=== PATIENT | female | born 1975 | race Caucasian/White ===

== ENCOUNTER 2023-11-08 10:31 | Emergency (ER) | payer OTHER, SELFPAY ==
[2023-11-08 10:33] VITALS: BP 123/72; PULSE 74; RESP 18; TEMP 36.9; O2SAT 97
--- NOTE | 2023-11-08 12:00 | ED.HA ---
HPI - Headache General Chief Complaint: Headache Stated Complaint: migraine Time Seen by Provider: 11/08/23 11:47 Source: patient Mode of arrival: ambulatory Limitations: no limitations History of Present Illness HPI Narrative: Patient presents with complaint of a migraine. She was at a concert last night in the heat though she tried to traink a lot of water. No alcohol consumed. She woke up with a headache between 1 and 2. Hx of migraines and POTS. Took her last Zomig tablet between 6 and 7 am prescribed to her by her PCP though realized it was . Experiencing photophobia and phonophobia. No trauma, no anticoagulation, no sick contacts. She also had taken ibuprofen between 3 and 4. Has gotten a headache cocktail before , believes with Toradol and compazine. Related Data Allergies Allergy/AdvReac Type Severity Reaction Status Date / Time diclofenac Allergy Unknown Rash Unverified 11/08/23 11:51 doxycycline Allergy Unknown Rash Unverified 11/08/23 11:51 fentanyl Allergy Unknown Difficulty Unverified 11/08/23 11:51 Breathing meperidine Allergy Unknown Rash Unverified 11/08/23 11:51 Sulfa (Sulfonamide Allergy Unknown Rash Unverified 11/08/23 11:51 Antibiotics) [facility] Past Medical History Medical History Migraine POTS (postural orthostatic tachycardia syndrome) Exam Narrative: GENERAL: Well-appearing, well-nourished, and in no acute distress. HEAD: Normocephalic, atraumatic. EYES: Non injected, non icteric. Pupils round and equally reactive, exam performed while in darkened room. ENT: Nares clear, no rhinorrhea or epistaxis. NECK: Supple. CHEST: Speaking in full sentences. No respiratory distress. HEART: Regular rate and rhythm. . ABDOMEN: Soft, nondistended. EXTREMITIES: Normal range of motion. No edema. Moves all extremities. SKIN: Warm, dry, no rash. NEURO: No focal deficits. Alert and oriented x3. Sensation intact to gross touch throughout in extremities, symmetric. PSYCH: Normal mood and affect. Course Vital Signs Vital signs: Vital Signs Temperature 98.4 F 11/08/23 10:33 Pulse Rate 74 11/08/23 10:33 Respiratory Rate 18 11/08/23 10:33 Blood Pressure 123/72 11/08/23 10:33 Pulse Oximetry 97 11/08/23 10:33 Oxygen Delivery Room Air 11/08/23 10:33 Temperature 98.4 F 11/08/23 10:33 Pulse Rate 74 11/08/23 10:33 Respiratory Rate 18 11/08/23 10:33 Blood Pressure 123/72 11/08/23 10:33 Pulse Oximetry 97 11/08/23 10:33 Oxygen Delivery Room Air 11/08/23 10:33 MDM - Headache MDM Narrative Medical decision making narrative: Patient presents with a headache. History of migraines and POTS. In the emergency department they are afebrile with vital signs within normal limits. After obtaining the patient's history and performing a physical exam, the headache is most likely due to benign etiology. The extensive neurological examination is non-focal, there are no high-risk features on history, vital signs are stable, and the patient is non-toxic appearing. The Ddx for the patient's headache is tension headache, migraine, or other headache of non-emergent etiology. Unlikely SAH: Headache is similar to headaches in the past. No neuro deficits Unlikely subdural/epidural hematoma: no history of trauma, no anticoagulation Unlikely meningitis: afebrile, no meningismus, mild photophobia Unlikely temporal arteritis: pt <60 years old. Unlikely acute angle glaucoma: PERRL Unlikely carbon monoxide poisoning: no other house members with similar symptoms The patient's headache was treated symptomatically with IV fluids, ketorolac, benadryl, compazine. Upon reevaluation, she is feeling much better. She will be discharged with strict return precautions and instructions to follow up with their PCP in the next 1-2 days. Also provided a one time dose of steroid to reduce chance of rebound headache. Provided Rx for alexandro
[2023-11-08] MEDS: SODIUM CHLORIDE 0.9% IV 1,000 ML 999 ML IV CONT (12:29)
[2023-11-08] MEDS: KETOROLAC 15 MG/ML VIAL (*BKC) IV PUSH (12:30)
[2023-11-08] MEDS: PROCHLORPERAZINE EDISYLATE 10 MG/2 ML VIAL IV PUSH (12:30)
[2023-11-08] MEDS: diphenhydrAMINE HCl INJ 50 MG/ML VIAL 25 MG IV PUSH (12:30)
[2023-11-08] MEDS: predniSONE 20 MG TABLET PO (14:08)
== END 2023-11-08 14:13 | disposition home or self-care (01) ==
PROVIDERS: Emergency Provider Student in an Organized Health Care Education/Training Program; PCP Family Medicine
DX: R51.9 Headache, unspecified (principal)
CPT/HCPCS: 96361; 96374; 96375; 99284; J0780; J1200; J1885; J7030; J7512

== ENCOUNTER 2024-09-21 18:03 | Emergency (ER) | payer OTHER, SELFPAY ==
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
--- OUTSIDE RECORDS SUMMARY | 2024-09-21 18:05 | XMS_ITS | Clinical Summary ---
Author Organization [facility] Administrative Offices Address [address] [place] [address] Care Team Providers Care Cytology Laboratory Manager Name Role Phone Marlon Pollock MD Primary Care Provider [phone] Allergies Active Allergy Reactions Criticality Noted Date Comments Covid-19 Vaccine, Mrna, [id number], Lnp-S (Dash) Angioedema High 06/25/2021 Diclofenac Rash,Fever Low 10/25/2009 Dicyclomine Rash Low 05/04/2017 Doxycycline Hives,Itching High 10/25/2009 Fentanyl Bradycardia,Hypotens ion High 10/25/2009 Low BP,low o2 sat,loss orientation Meperidine (Pf) Rash,Itching Medium 10/25/2009 Moxifloxacin Nausea and Vomiting Low Sulfa (Sulfonamide Antibiotics) Rash,Itching,Fever High 10/25/2009 Medications hydrocortisone (Proctozone-HC) 2.5 % cream with perineal applicator Insert by rectum 2 times daily. 28 Gram 4 Active albuterol sulfate HFA 90 mcg/actuation aerosol inhaler Take 2 Puffs by inhalation. 4 02/16/20 25 Active methylPREDNISol one (MEDROL DOSPACK) 4 mg Tablets, Dose Pack follow package directions 4 Active rosuvastatin (CRESTOR) 10 mg tablet TAKE 1 TABLET(10 MG) BY MOUTH DAILY 90 Tablet 3 4 Active valACYclovir (Valtrex) 500 mg tablet Take 1 Tablet (500 mg) by mouth 2 times daily. 180 Tablet 3 4 Active propranoloL (INDERAL) 10 mg tablet Take 1 Tablet (10 mg) by mouth 2 times daily. 60 Tablet 5 5 Active omeprazole (PriLOSEC) 40 mg Capsule, Delayed Release(E.C.) Take 1 Capsule (40 mg) by mouth daily. 90 Capsule 1 5 Active Active Problems Patient Care Coordination No te Formatting of this note migh t be different from the original. Dr. 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 06/17/2019 HSV infection 07/15/2018 Dense breast tissue on mammogram 09/02/2017 Liver mass 08/08/2017 TMJ (temporomandibular joint syndrome) 6 LSO 04/19: gen diet; Autonomic neuropathy (POTS) 04/19/2015 POTS (postural orthostatic tachycardia syndrome) 06/15/2013 Overview (06/15/2013): Renee 2013 Syncope and collapse 04/28/2013 Family history of colon cancer 03/17/2012 Cervical high risk human pap illomavirus (HPV) DNA test positive Overview (03/17/2012): 2009 persistent positive 07/2010 colposcopic benign cervical biopsies Resolved Problems Problem Noted Date Diagnosed Date Resolved Date S/P LEEP 03/17/2012 04/19/2015 Overview (03/17/2012): 2001 Well woman exam with routine gynecological exam 03/17/2012 03/31/2014 OCP (oral contraceptive pills) initiation 03/17/2012 03/30/2013 Labor B pos GBS neg 11/12/2009 03/17/20 12 Encounters Date Type Department Care Team Description 09/20/2024 External Device Data STL ABSTRACTION Provider, Abstract 09/12/2024 Telephone [facility] Pulmonology [address] [place] [address] Roxi Avendaño MD Follow Up 09/09/2024 Results Follow-Up [facility] Pulmonology [address] [place] [address] Roxi Avendaño MD HOME SLEEP STUDY UNATTENDED 08/19/2024 2:53 PM CDT - 08/19/2024 11:59 PM CDT Hospital Encounter [facility] Home Sleep Study [facility] [address] [place] [address] Roxi Avendaño MD Discharge Disposition: Home or Self Care 08/10/2024 Abstract [facility] Heart and Vascular At [address] [place] [address] Olivia Duran MD 08/08/2024 Refill [facility] Gastroenterology [address] [place] [address] Maxim Beard MD 08/05/2024 9:15 AM CDT Office Visit [facility] Pulmonology [facility] [address] [place] [address] Roxi Avendaño MD Observed sleep apnea (Primary Dx) 08/01/2024 Refill [facility] Heart and Vascular At [address] [place] [address] Olivia Duran MD 07/28/2024 3:15 PM CDT Office Visit [facility] Heart and Vascular At [address] [place] [address] Olivia Duran MD POTS (postural orthostatic tachycardia syndrome) (Primary Dx); Pure hypercholesterolemia 07/27/2024 External Device Data STL ABSTRACTION Provider, Abstract 07/26/2024 External Device Data STL ABSTRACTION Provider, Abstract 07/23/2024 External Device Data STL ABSTRACTION Provider, Abstract 07/22/2024 External Device Data STL ABSTRACTION Provider, Abstract 07/01/2024 Telephone [facility] Heart and Vascular At [address] [place] [address] Olivia Duran MD Information; Irregular Heart Beat from Last 3 Months Immunizations Immunization Administration Dates Next Due (PFIZER)(12 YR UP) COVID-19 VACCINE - EMERGENCY USE AUTHORIZATION, MRNA, [id number](PF) 30 MCG/0.3 ML IM SUSP 05/31/2021 Influenza Seasonal Unspecified Formulation IM ,03/22/2009 Influenza Vaccine Nasal 02/22/2015 Family History Medical History Relation Name Comments Healthy Brother 1 Healthy Brother 2 Healthy Brother 3 Healthy Daughter 1 Healthy Daughter 2 Diabetes Father Liver Disease Father Unknown Father COPD Maternal Grandfather Zina d Diabetes Maternal Grandfather Zina Heart Disease Maternal Grandfather Zina Hypertension Maternal Grandfather Zina Lung Cancer Maternal Grandfather Zina Cancer Maternal Grandmother Jordyn possibl e ovarian or cervical?? Heart Disease Maternal Grandmother Jordyn Lung Cancer Maternal Grandmother Jordyn Ovarian Cancer Maternal Grandmother Jordyn Uterine Cancer Maternal Grandmother Jordyn Basal cell carcinoma Mother Anny Colon Polyps Mother Anny large and preca ncerous Other Mother Anny mitral valve pr olaspe Stomach Cancer Paternal Grandfather Micheal Unknown Paternal Grandmother Breast Cancer Neg Hx Colon Cancer Neg Hx Relation Name Status Comments Brother 1 Alive Brother 2 Alive Brother 3 Alive Daughter 1 Alive Daughter 2 Alive Father (Age 59) Cirrhosis Hep C and heart issues, DM Maternal Aunt Maternal Grandfather Zina Maternal Grandmother Jordyn Mother Anny Alive Paternal Grandfather Micheal Paternal Grandmother Social History Tobacco Use Types Packs/Day Years Used Date Smoking Tobacco: Never Smokeless Tobacco: Never Tobacco Cessation:Counseling Given: Not Answered Alcohol Use Standard Drinks/Week Comments Yes 0 (1 standard drink = 0.6 oz pur e alcohol) Occasional Feeling Safe Answer Date Recorded Within the last year, have y ou been afraid of your partner or ex-partner? No 02/25/2021 Within the last year, have y ou been humiliated or emotionally abused in other ways by your partner or ex-partner? No Within the last year, have y ou been kicked, hit, slapped, or otherwise physically hurt by your partner or ex-partner? No 02/25/2021 Within the last year, have y ou been raped or forced to have any kind of sexual activity by your partner or ex-partner? No 02/25/2021 Social Connections Answer Date Recorded Frequency of Communication with Friends and Fami ly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 02/25/2021 Frequency of Social Gatherings with Friends and Family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 02/25/2021 Attends Congregation Services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 02/25 Active Member of Clubs or Organizations Not on f ile 02/25/2021 Attends Club or Organization Meetings Not on sagar e 02/25/2021 Are you , , di vorced, , never , or living with a partner? 02/25/2021 Feeling Safe Answer Date Recorded Are you in a relationship wi th someone who hurts you emotionally and/or physically? 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 Last Filed Vital Signs Vital Sign Reading Time Taken Comments Blood Pressure 118/74 08/05/2024 9:08 AM CDT Pulse 73 08/05/2024 9:08 AM CDT Temperature 36.1 C (97 F) 01/22/2024 2:14 PM CDT Respiratory Rate 6 01/22/2024 2:34 PM CDT Oxygen Saturation 97% 08/05/2024 9:08 AM CDT Inhaled Oxygen Concentration - - Weight 65.3 kg (144 lb) 08/05/2024 9:08 AM CDT Height 154.9 cm (5' 1 ) 08/05/2024 9:08 AM CDT Body Mass Index 27.21 08/05/2024 9:08 AM CDT Plan of Treatment Upcoming Encounters Date Type Department Care Team (Late st Contact Info) Description 01/03/2025 8:00 PM CDT Appointment [facility] Support Services Adult Sleep Medicine [address] [place] [address] Roxi Avendaño MD [address] [place] [address] 02/02/2025 3:30 PM CDT Office Visit [facility] Heart and Vascular At [facility] [address] [place] [address] Olivia Duran MD [address] [place], [place] [id number] 03/08/2025 3:15 PM CDT Office Visit [facility] TEACHING AIDE - [id number] [address] Kathy Robledo DO [address] [place] [address] Health Maintenance Due Date Last Done Comments Pre-Diabetes and Diabetes Screening 1975 HEPATITIS B VACCINES (1 of 3 - 19+ 3-dose series) 1996 FIT-DNA Q 3 years 2022 FIT/FOBT Q 1 year 2022 Flex Sig/CT Colonography Q 5 years 2022 INFLUENZA VACCINE (#1) 2023 5, 02/19/2015, 02/15/2014, Additional history exists COVID-19 Vaccine (2023-2 5 season) 2024 05/31/2021, 05/07/2020 BREAST CANCER SCREENING 03/30/2025 03/30/20 24, 03/10/2023, 03/10/2023, Additional history exists COLORECTAL SCREENING 10/17/2026 10/17/2021, 10/17/2021, 10/17/2021, Additional history exists Colorectal Cancer Screening 10/17/2026 PAP SMEAR 03/07/2027 03/07/2024, 02/15, 02/27/2022, Additional history exists CERVICAL CANCER SCREENING 03/07/2029 HPV/Cotest (21-29) 03/07/2029 03/07/2024, 1 , 02/27/2022, Additional history exists HPV/Cotest (30-65) 03/07/2029 03/07/2024, 1 , 02/27/2022, Additional history exists DTAP/TDAP/TD VACCINES (2 - T d or Tdap) 04/08/2032 04/08/2022 Procedures Procedure Name Priority Date/Time Associated Diagnosis Comments HOME SLEEP STUDY UNATTENDED Routine 09/08/2024 7:12 AM CDT Observed sleep apnea MAMMO 3D MADELINE SCREEN BILAT W OR WO CAD Routine 03/30/2024 4:40 PM CHILDBIRTH AND INFANT CARE TEACHER Visit for screening mammogram CERV/VAG CYTO AGE BASED SCREEN PAP Routine 03/07/2024 3:27 PM CDT Well woman exam with routine gynecological exam Screening for HPV (human papillomavirus) Screening for cervical cancer COLONOSCOPY REPORT 10/17/2021 12 :25 PM CDT from Last 3 Months or Most Recently Relevant to Health Maintenance Results * HOME SLEEP STUDY UNATTENDED (09/08/2024 7:12 AM CDT) Narrative Procedure Note Aspen Ball MD - 09/08/2024 7:12 AM CDT [place], [place] [address] Sleep Study CSN: [id number] DATE OF SERVICE: 08/21/2024 HISTORY The patient is a 48-year-old woman, who is 61 inches tall and weighs 144pounds. POLYSOMNOGRAPHY This is a home sleep study performed on 08/21/2024. The patient'smonitoring time was 419.5 minutes. The patient's LOC was 1.7. Theaverage saturation was 95% and the lowest saturation was 91%. Thepercentage of snoring was 28.1%. IMPRESSION This patient's home sleep study showed LOC of 1.7, indicating nosignificant sleep apnea. Some mild snoring was noted during 28.1% of themonitoring time. LOC is a surrogate for AHI. KPL:MEDQ DID:[id number] Dictated by: Claudia Ball MD CC: Dr. Avendaño Roxi Avendaño MD SLEEP CENTER ORDERABLES Final Result * MAMMO 3D MADELINE SCREEN BILAT W OR WO CAD (03/30/2024 4:40 PM CHILDBIRTH AND INFANT CARE TEACHER) Anatomical Region Laterality Modality Breast Bilateral Mammography 03/30/2024 4:41 PM CHILDBIRTH AND INFANT CARE TEACHER Impressions 03/30/2024 4:51 PM CHILDBIRTH AND INFANT CARE TEACHER IMPRESSION: No mammographic evidence of malignancy in the bilateral breasts. Routine screening mammography is recommended in one year. OVERALL FINAL ASSESSMENT: BI-RADS CATEGORY 1 - Negative DICTATION LOCATION: [facility] 03/30/2024 4:51 PM CHILDBIRTH AND INFANT CARE TEACHER EXAMINATION: BILATERAL SCREENING DIGITAL MAMMOGRAPHY WITH TOMOSYNTHESIS AND CAD DATE: 03/30/2024 4:40 PM HISTORY: Routine screening mammography. COMPARISON: Mammography with dates ranging from 03/10/2023 to 09/10/2018. TECHNIQUE: A bilateral screening mammogram was performed. Low-dose full-field digital breast tomosynthesis examination was performed with 2D and 3D acquisitions. Examination is read in conjunction with computer aided detection. BREAST COMPOSITION: The breasts are heterogeneously dense, which may obscure small masses. FINDINGS: There are no suspicious masses, suspicious calcifications, or other suspicious findings in either breast. There has been no suspicious interval change. Computer aided detection was used in the interpretation of this examination. Procedure Note Roger Hernandez MD - 03/30/2024 EXAMINATION: BILATERAL SCREENING DIGITAL MAMMOGRAPHY WITH TOMOSYNTHESIS AND CAD DATE: 03/30/2024 4:40 PM HISTORY: Routine screening mammography. COMPARISON: Mammography with dates ranging from 03/10/2023 to 09/10/2018. TECHNIQUE: A bilateral screening mammogram was performed. Low-dose full-field digital breast tomosynthesis examination was performed with 2D and 3D acquisitions. Examination is read in conjunction with computer aided detection. BREAST COMPOSITION: The breasts are heterogeneously dense, which may obscure small masses. FINDINGS: There are no suspicious masses, suspicious calcifications, or other suspicious findings in either breast. There has been no suspicious interval change. Computer aided detection was used in the interpretation of this examination. IMPRESSION: No mammographic evidence of malignancy in the bilateral breasts. Routine screening mammography is recommended in one year. OVERALL FINAL ASSESSMENT: BI-RADS CATEGORY 1 - Negative DICTATION LOCATION: [facility] Kathy Moses Kieshaapolinar DO MAMMO ORDERABLES Final Result * (ABNORMAL) CERV/VAG CYTO AGE BASED SCREEN PAP (03/07/2024 3:27 PM CDT) COMMENT (PAP): [facility] [place] Comment: This order for age-based cervical cancer and STI screening follows ACOG guidelines(PB 168, 140, PBH670). See individual assays for performing site location. CLINICAL INFORMATION [facility] [place] Comment:SCREENING LAST MENSTRUAL PERIOD [facility] [place] Comment:NONE GIVEN PREV PAP: [facility] [place] Comment:03/05/2023 NIL PREV BX: [facility] [place] Comment:NONE GIVEN SOURCE [facility] [place] Comment:Endocervix ADEQUACY: [facility] [place] Comment: Satisfactory for evaluation. Endocervical/transformation zone component present. Age and/or menstrual status not provided GENERAL CATEGORIZATION: (A) [facility] [place] Comment:Cytology Results: Ep ithelial Cell Abnormality PAP INTERP (A) [facility] [place] Comment:Low Grade Squamous I ntraepithelial Lesion (LSIL) COMMENT (PAP TEST) [facility] [place] Comment: This Pap test has been evaluated with computer assisted technology. Suggest clinical correlation and follow-up as clinically appropriate PROJECT SCHEDULER: [facility] [place] Comment: MVB, CT(ASCP) CT Screening Location: [place] [address] [place] [address] PATHOLOGIST Sandy [facility] Comment: Irvin Gordon M.D., Board Certified in Anatomic Pathology and Cytopathology. (electronic signature) EXPLANATORY NOTE [facility] [employer] [facility] Comment: EXPLANATORY NOTE: The Pap is a screening test for cervical cancer. It is not a diagnostic test and is subject to false negative and false positive results. It is most reliable when a satisfactory sample, regularly obtained, is submitted with relevant clinical findings and history, and when the Pap result is evaluated along with historic and current clinical information. HPV E6/E7 Not Detected Not Detected [facility] [place] Comment: Methodology: Strawhat Inspector And Packer-Mediated Amplification This assay detects E6/E7 viral messenger RNA (mRNA) from 14 high-risk HPV types (16,18,31,33,35,39,45,51,52,56,58,59,66,68). Cervical sources are required for HPV testing. If a vaginal source from a patient who has had a total hysterectomy with removal of cervix was submitted, please contact the testing laboratory for alternative testing options. For additional information, please refer to http://education.[employer]/faq/PSK544u2 (This link if provided for information/ educational purposes only.) Test [facility]formed at[facility] [address] [place] [address] Sergio RIVAS Genital SWAB OF ENDOCERVIX / Unknown 03/07/2024 3:27 PM CDT 03/08/2024 4:39 AM CDT Kathy Robledo DO PATHOLOGY/CYTOLOGY ORDERABLES F inal Result [facility] [phone] [facility] [id number] [place] [address] * COLONOSCOPY REPORT (10/17/2021 12:25 PM CDT) Narrative Procedure Note Maxim Beard MD - 10/17/2021 12:25 PM CDT [facility] Endoscopy Patient Name: Annel Granda Procedure Date: 10/17/2021 Date of : 1975 Age: 46 Attending MD: Maxim Beard MD Procedure: Colonoscopy Indications: Hematochezia, Family history of colonic polyps in a first-degree relative (mother with multiple polyps including a larger polyp at 60), Change in bowel habits. Last colonoscopy 2018. Small polyp proved to be lymphoid aggregate. Providers: Maxim Beard MD Referring MD: Marlon Pollock MD Requesting Provider: Olivia Duran MD Medicines: Monitored Anesthesia Care Procedure: Informed consent was obtained for the procedure, including moderate sedation after risks were discussed. Based on the pre-procedure assessment, including review of the patient's medical history, medications, allergies, and review of systems, the patient was deemed to be an appropriate candidate for sedation. A timeout was performed. Continuous ECG monitoring, pulse oximetry, blood pressure monitoring, and direct observation were performed. The Colonoscope was introduced through the anus and advanced to the terminal ileum. The quality of the bowel preparation was excellent. Estimated Blood Loss: Estimated blood loss: none. Findings: External and internal hemorrhoids were found during retroflexion and during perianal exam. The hemorrhoids were mild. The perianal examination was otherwise normal. No fissure currently. The exam was otherwise normal throughout the examined colon. The terminal ileum appeared normal. Complications: No immediate complications. Impression: - External and internal hemorrhoids. - The examined portion of the ileum was normal. - No specimens collected. Recommendation: - Repeat colonoscopy in 5 years for surveillance due to mother's history. Maxim Beard MD 10/17/2021 12:24:52 PM This report has been signed electronically. Number of Addenda: 0 Procedure Date: 10/17/2021 11:44:[address] [place] [address] Maxim Beard MD GI PROCEDURE ORDERABLES Final Result from Last 3 Months or Most Recently Relevant to Health Maintenance Insurance [facility] [employer] [id number] Advance Directives For more information, please contact: [phone] * Full Code (Latest Code Status on File) Date Activated Date Inactivated Comments 01/22/2024 12:47 PM 01/22/2024 4:50 PM * Full Code Date Activated Date Inactivated Comments 10/04/2022 1:20 AM 10/06/2022 6:03 PM * Full Code Date Activated Date Inactivated Comments 10/17/2021 11:27 AM 10/17/2021 3:02 PM * Full Code Date Activated Date Inactivated Comments 09/11/2017 8:48 AM 09/11/2017 1:47 PM * Full Code Date Activated Date Inactivated Comments 06/17/2017 7:16 AM 06/17/2017 11:10 AM Care Teams Cytology Laboratory Manager Relationship Specialty Start Date End Date Marlon Pollock MD PCP - General 06/06/09
--- OUTSIDE RECORDS SUMMARY | 2024-09-21 18:05 | XMS_ITS | Encounter Summary ---
Author Organization [facility] Address [address] [place] [address] Care Team Providers Care Acls Specialist Name Role Phone Marlon oPllock MD Primary Care Provider [phone] Encounter Details Date Type Department Care Team (Latest Contact Info) Description 09/09/2024 Results Follow-Up [facility] Pulmonology 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 documented as of this encounter Miscellaneous Notes * Result Encounter Note - Roxi Avenadño MD - 09/09/2024 12:55 PM CDT [facility] this encounter Plan of Treatment Upcoming Encounters Date Type Department Care Team (Late st Contact Info) Description 01/03/2025 8:00 PM CDT Appointment [facility] Support Services Adult Sleep Medicine [address] [place] [address] Roxi Avendaño MD [address] [place] [address] 02/02/2025 3:30 PM CDT Office Visit [facility] [address] [place] [address] Olivia Duran MD [address] [place], [place] [id number] 03/08/2025 3:15 PM CDT Office Visit [facility] HOB MILL OPERATOR [address] [place] [address] Kathy Robledo DO [address] [place] [address] documented as of this encounter Visit Diagnoses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documented in this encounter Care Teams Acls Specialist Relationship Specialty Start Date End Date Marlon Pollock MD PCP - General 06/06/09 documented as of this encounter
--- OUTSIDE RECORDS SUMMARY | 2024-09-21 18:05 | XMS_ITS | Clinical Summary ---
Author Organization [facility] Address [address] [place] [address] Care Team Providers Care Adjunct Professor Of English Name Role Phone Marlon Pollock MD Primary Care Provider [phone] Allergies Active Allergy Reactions Criticality Noted Date Comments Covid-19 Vaccine, Mrna, [id number], Lnp-S (Pfizer) Angioedema High 06/25/2021 Diclofenac Dicyclomine Rash Medium [...] for 7 days 3.5 g 5 09/16/19 25 Active Problems Problem Noted Date Diagnosed Date [...] month. Assessment & Plan (04/28/2024 8:52 AM DATA ENTRY REPRESENTATIVE): Referral to sleep medicine at [facility] for strongly suspicious findings of SHAR and will refer as above. No parasomnia, no sleep talking. BMI 26.0-26.9,adult 04/28/2024 Assessment & Plan (08/09/2024 8:18 AM CDT): NOt an active clincial issues. Assessment & Plan (04/28/2024 8:52 AM DATA ENTRY REPRESENTATIVE): Not an active clinical issue. Post-COVID chronic [...] CDT): COntinues f/u with Dr. Hernandez. Chris montañowth prn propranolol for tachycardia and will follow response. Continues to be aggressive with hydration. Assessment & Plan (04/28/2024 8:51 AM DATA ENTRY REPRESENTATIVE): COntinue f/u with cardiology. 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 06/17/2019 08/04/2023 Encounters Date Type Department Care Team Description 09/08/2024 Orders Only [facility] [address] [phone] Marlon Pollock MD 08/09/2024 8:30 AM CDT - 08/09/2024 11:59 PM CDT Hospital Encounter [place] [id number] POTS (postural orthostatic tachycardia syndrome) Discharge Disposition: Discharge to home or self care 08/09/2024 8:30 AM CDT Lab [facility] Outpatient Lab at [address] [phone] POTS (postural orthostatic tachycardia syndrome) (Primary Dx) 08/09/2024 8:00 AM CDT Office Visit [facility] Primary Care at [address] [phone] Marlon Pollock MD POTS (postural orthostatic tachycardia syndrome) (Primary Dx); Mixed hyperlipidemia; Gastroesophageal reflux disease, unspecified whether esophagitis present; Sleep disturbance; Annual physical exam; BMI 26.0-26.9,adult 08/02/2024 5:30 PM CDT Office Visit [facility] Convenient Care at [address] [phone] Bruno Flores NP Eyelid dermatitis, allergic/contact (Primary Dx) 07/01/2024 Telephone [facility] [address] [phone] Marlon Pollock MD 06/28/2024 10:30 AM DATA ENTRY REPRESENTATIVE Office Visit [facility] Primary Care at [address] [phone] Marlon Pollock MD Acute cough (Primary Dx); Fever, unspecified fever cause; Influenza A 06/28/2024 Telephone [facility]ly [facility] [address] (Third Floor) [place] [phone] Diandra Matson, RN [place] Employee Screening from Last 3 Months Immunizations Immunization Administration Dates Next Due Influenza [...] Vaccination (12+ Yrs) PURPLE 05/31/2021,05/07/2020 Tdap 04/08/2022 Surgical History Surgery Date Site/Laterality Comments SALPINGOOPHORECTOMY 04/17/2015 - 05/17/2015 left ovary and tube removed Medical History Medical History Date Comments Hx Other Medical Autonomic disor dom; Comments: DRS 05/03/2014 - Migraines POTS (postural orthostatic t achycardia syndrome) Family History Medical History Relation Name Comments Coronary artery disease Father Josie nary artery disease; Colon polyps Mother Relation Name Status Comments Father (Age 58) Mother Alive Social History Tobacco Use Types Packs/Day Years Used Date Smoking Tobacco: Never Smokeless Tobacco: Never Tobacco Cessation:Counseling Given: Not Answered Alcohol Use Standard Drinks/Week Comments Yes 0 (1 standard drink = 0.6 oz pur e alcohol) [facility] [employer] Answer Date Recorded In the past 12 months has [employer], gas, oil, or water [employer] threatened to shut off services in your [...] week 04/18/2024 How often do you attend [facility] or scientologist services? More than 4 times per year 04/18/2024 Do you belong to any clubs o r organizations such as buddhism groups, unions, fraternal or athletic groups, or [...] staff should administer the PHQ-9) 0 08/09/2024 [facility] - Occupational Stress Questionnaire Answer Date Recorded [...] any time in the past 12 m [facility], were you homeless or living in a nursing home (including now)? No 04/18/2024 Comments Unknown Sex and Gender Information Value Date Recorded Sex Assigned at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 Legal Sex Female 7:01 PM DATA ENTRY REPRESENTATIVE Gender Identity Female 12/07/2020 8:51 AM CDT Sexual Orientation Straight 12/07/2020 8: 51 AM CDT Obstetrics History Last Filed Vital Signs Vital Sign Reading [...] 08/09/2024 8:00 AM CDT Plan of Treatment Health Maintenance Due Date Last Done Comments Cervical Cancer Screening 1977 Hepatitis C Screening 1977 Hepatitis B Screening 09/02/1995 Covid-19 Vaccine ( season) 2024 05/31/2021, 05/31/2021, 05/28/2020, Additional history exists Breast Cancer Screening-Mammogram 03/30/2025 03/30/2024, 03/30/2024, 03/10/2023, Additional history exists Depression Screening 08/09/2025 08/09/2024, 06/28/2024, 04/18/2024, Additional history exists Regular Well Visit/Exam 18-64 08/09/2025 08/09/2024, 08/04/2023, 07/22/2022, Additional history exists Colon Cancer Screening-Colonoscopy 10/17/2026 10/17/2021, 09/11/2017, 09/11/2017, Additional history exists DTaP/Tdap/Td Vaccine (2 - Td or Tdap) 04/08/2032 04/08/2022 Influenza Vaccine Discontinued 02/19/2015, , 02/15/2014, Additional history exists Pneumococcal vaccine <65 Aged Out No longer eligible based on patient's age to complete this topic Procedures Procedure Name Priority Date/Time Associated Diagnosis Comments HEPATIC FUNCTION PANEL Routine 08/09/2024 8:30 AM CDT POTS (postural orthostatic tachycardia syndrome) POC INFLUENZA A/B, COVID-19 ANTIGEN Routine 06/28/2024 10:42 AM DATA ENTRY REPRESENTATIVE Acute cough SCREENING MAMMOGRAM BILATERAL W SILAS [...] CDT FAX RESULTS TO DR OLIVIA HERNANDEZ [phone] Olivia Hernandez MD LAB BLOOD ORDERABLES Final Res ult TIANNA PATRICK [address] [place] [address] * (ABNORMAL) POC Influenza A/B, COVID-19 antigen (06/28/2024 10:42 AM DATA ENTRY REPRESENTATIVE) Influenza A Ag, POC Positive(A) Negative [facility] Influenza B Ag, POC Negative Negative [facility] COVID-19 Ag POC Presumptive Negative Presumptive Negative, Invalid [facility] Nasal 06/28/2024 10:4 2 AM DATA ENTRY REPRESENTATIVE Marlon Pollock MD POINT OF CARE TEST ORDERA BLES Final Result Performing Organization Address City/[facility]/ZIP Co de Phone Number [facility] PCP [facility] [address] [facility] [address] * Screening Mammogram Bilateral W Silas (02/06/2022) Anatomical Region Laterality Modality Breast Bilateral Mammography Historical Provider IMG MAMMO PROCEDURES Sammi l Result * Colonoscopy (10/17/2021) Anatomical Region Laterality Modality Other Historical Provider ENDOSCOPY PROCEDURES Sammi l Result from Last 3 Months or Most Recently Relevant to Health Maintenance Insurance [facility]/PPO Address: [address] [address] [place] [address] [place] [address] [facility] H[facility]/PPO Address: [address] [place] [address] [place] [address] [facility] H[facility]/PPO Address: [address] [address] [place] [address] [place] [address] [facility]/PPO Address: [facility] [id number] [place] [address] Care Teams Adjunct Professor Of English Relationship Specialty Start Date End Date Marlon Pollock MD [address] [place] [address] PCP - General 01/03/11
--- OUTSIDE RECORDS SUMMARY | 2024-09-21 18:05 | XMS_ITS | Encounter Summary ---
Author Organization [facility] Address 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 [address] [facility] [address] [place] [address] Olivia Duran MD [address] [facility] [place], [place] [phone] 03/08/2025 3:15 PM CDT Office Visit [facility] VOLUNTEER RECRUITMENT COORDINATOR - [id number] [address] Kathy Robledo DO [address] [facility] [address] [place] [address] documented as of this encounter Visit Diagnoses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documented in this encounter Care Teams Sheet Roller Operator Relationship Specialty Start Date End Date Marlon Pollock MD PCP - General 06/06/09 documented as of this encounter
--- OUTSIDE RECORDS SUMMARY | 2024-09-21 18:06 | XMS_ITS | Clinical Summary ---
Author Organization [facility] Address [address] [address] Phone Care Team Providers Care Property Maintenance Technician Name Role Phone Marlon Pollock MD Primary Care Provider [phone] Allergies Active Allergy Reactions Criticality Noted Date Comments Meperidine Rash 06/22/2015 Dicyclomine Rash 06/22/2015 Doxycycline Anaphylaxis,Rash 06/22/2015 Fentanyl Rash 06/22/2015 Sulfa Antibiotics Rash 06/22/2015 Medications No known medications Active Problems Problem Noted Date Diagnosed Date TMJ (temporomandibular joint syndrome) 6 Referred otalgia 06/22/2015 Malocclusion of teeth 06/22/2015 Immunizations Immunization Administration Dates Next Due Influenza Vaccine Nasal 02/19/2015 Social History Tobacco Use Types Packs/Day Years Used Date Smoking Tobacco: Never Alcohol Use Standard Drinks/Week Comments No 0 (1 standard drink = 0.6 oz pur e alcohol) Comments No Sex and Gender Information Value Date Recorded Sex Assigned at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 Legal Sex Female 8:03 AM ADVERTISING JOB TITLES Gender Identity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 Sexual Orientation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 Last Filed Vital Signs Vital Sign Reading Time Taken Comments Blood Pressure 118/64 06/22/2015 11:15 AM ADVERTISING JOB TITLES Pulse 68 06/22/2015 11:15 AM ADVERTISING JOB TITLES Temperature - - Respiratory Rate - - Oxygen Saturation - - Inhaled Oxygen Concentration - - Weight 56.7 kg (125 lb) 06/22/2015 11:15 AM ADVERTISING JOB TITLES Height 154.9 cm (5' 1 ) 06/22/2015 11:15 AM ADVERTISING JOB TITLES Body Mass Index 23.62 06/22/2015 11:15 AM ADVERTISING JOB TITLES Plan of Treatment Health Maintenance Due Date Last Done Comments Hepatitis C Virus (HCV) Screening 1977 TdaP Immunization 1977 Hepatitis B Immunization (1 of 3 - 19+ 3-dose series) 1996 Pap Smear 1998 Cervical Cancer Screening (CCS) 09/02/2007 HPV/Cotest 09/02/2007 Discussion re Starting/Frequ ency of Mammograms 2017 Colonoscopy 2022 Colorectal Cancer Screening 2022 Influenza Immunization (#1) 2024 02/19/2015 SARS-COV-2 Immunization ( - season) 2024 Respiratory Syncytial Virus (RSV) Immunization (Adult) (1 - 1-dose 75+ series) 2052 Meningococcal Immunization (ACWY) Aged Out No longer eligible based on patient's age to complete this topic Pneumococcal Immunization Combined Aged Out No longer eligible based on patient's age to complete this topic Rotavirus Immunization Aged Out No lo nger eligible based on patient's age to complete this topic Care Teams Property Maintenance Technician Relationship Specialty Start Date End Date Marlon Pollock MD [address] [place] [address] PCP - General Internal Medicine 06/22/15
--- OUTSIDE RECORDS SUMMARY | 2024-09-21 18:06 | XMS_ITS | Clinical Summary ---
Author Organization [facility] Address [address] [place] [address] Care Team Providers Care Bulk Materials Handling Plant Operator Name Role Phone Miranda Dent MD Primary Care Provider Cruz carvajal Source Comments [facility],non-owned Affiliates and Associated Physician Practices is amultiple site organization consisting of ambulatory clinics and hospital sitesin [place], [place], [place] and [place]. This disclosure is being madepursuant to the Care Everywhere program and may not contain all information available regarding this patient. 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 Gender Identity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 Sexual Orientation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 Plan of Treatment Health Maintenance Due Date Last Done Comments COLOGUARD (AGES 45-75) - COL ON CA SCREENING 1977 COLON MONITORING 1977 COLONOSCOPY - COLON CA SCREENING 1977 CT COLONOGRAPHY - COLON CA SCREENING 1977 Colorectal Cancer Screening 1977 FIT - COLON CA SCREENING 1977 FLEX SIG - COLON CA SCREENING 1977 LIPID TESTING 1977 MAMMOGRAM 1977 PAP SMEAR 1977 HIV SCREENING 1992 HEPATITIS C SCREENING 08/28/1995 DTAP/TDAP/TD VACCINES (1 - Tdap) 1996 HEPATITIS B VACCINE (1 of 3 - 19+ 3-dose series) 1996 COVID-19 VACCINE (2023-2 5 season) 2024 DEPRESSION SCREENING 05/18/2024 INFLUENZA VACCINE (Season Ended) 2025 ZOSTER VACCINE (1 of 2) 09/02/2027 HIB VACCINE Aged Out No longer eligi ble based on patient's age to complete this topic HPV VACCINE Aged Out No longer eligi ble based on patient's age to complete this topic MENINGOCOCCAL (Group B) VACC INE SHARED DECISION-MAKING Aged Out No longer eligibl e based on patient's age to complete this topic MENINGOCOCCAL GROUPS A/C/Y/W VACCINE Aged Out No longer eligible b ased on patient's age to complete this topic PNEUMOCOCCAL VACCINE Aged Out No long er eligible based on patient's age to complete this topic Insurance [facility] Care Teams Bulk Materials Handling Plant Operator Relationship Specialty Start Date End Date Miranda Dent MD NEED INFORMATION UPDATED PCP - General 05/29/09
--- OUTSIDE RECORDS SUMMARY | 2024-09-21 18:06 | XMS_ITS | Encounter Summary ---
Author Organization [facility] Address [address] [place] [address] Care Team Providers Care Dry Chain Operator Name Role Phone Miranda Dent MD Primary Care Provider Cruz carvajal Encounter Details Date Type Department Care Team (Late st Contact Info) Description 11/18/2023 Lab Requisition [facility] Physician [facility] - DermPath Lab 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 Gender Identity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 Sexual Orientation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 documented as of this encounter Plan of Treatment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 documented as of this encounter Procedures Procedure Name Priority Date/Time Associated Diagnosis Comments DERMATOPATHOLOGY Routine 11/17/2023 12:0 0 AM CDT documented in this encounter Results * DERMATOPATHOLOGY (11/17/2023 12:00 AM CDT) Case Report Dermatopathology Report Case: [id number] Authorizing Provider: Ronny Long Jr., MD Collected: 11/17/2023 12:00 AM Ordering Location: [facility] Physician [facility] - Received: 11/18/2023 12:31 PM DermPath Lab Pathologist: Beatriz Gonsales MD Specimen: Skin, left clavicular neck 1:16 PM CDT DERMATOPATHOLOGY LABORATORY Final Diagnosis Specimen A. SKIN, left clavicular neck: SEBORRHEIC KERATOSIS (L82.1) 1:16 PM CDT DERMATOPATHOLOGY LABORATORY Clinical History ISK vs VV vs BCC 1:16 PM CDT DERMATOPATHOLOGY LABORATORY Gross Description Specimen A: Received is one formalin filled container labeled with the patient's name and designated left clavicular neck. The specimen consists of a shave biopsy measuring 5x5x2 mm. Jar 0. 1:16 PM CDT DERMATOPATHOLOGY LABORATORY Microscopic Description Specimen A. SKIN, left clavicular neck: Sections show an acanthotic lesion composed of relatively uniform keratinocytes. There is hyperkeratosis and pseudo horn cysts formation. 1:16 PM CDT DERMATOPATHOLOGY LABORATORY Disclaimer An external and internal positive and negative controls are appropriate for the histochemical, immunohistochemical and immunofluorescence stain(s) in this case (if any), except where stated explicitly. The performance characteristics of the stain(s) cited in this report were developed and its performance characteristic determined by the Dermatopathology Laboratory at [facility], directed by Dr. Darshan Reagan. These tests need not be, and therefore are not, approved by the [place] Food and Drug Administration. The tests are used for clinical purposes. Billing Codes Specimen Charges Stain Charges 57460 1 1:16 PM CDT DERMATOPATHOLOGY LABORATORY Embedded Images 1:16 PM CDT DERMATOPATHOLOGY LABORATORY Pathology/Cytolog y TISSUE SPECIMEN FROM SKIN / Unknown 11/17/2023 11/18/2023 12:31 PM CDT Ronny Long Jr., MD LAB - PATHOLOGY/CYTOLOG Y ORDERABLES Final Result DERMATOPATHOLOGY LABORATORY [facility] - Department of Dermatology [address], [address] [phone] documented in this encounter Visit Diagnoses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documented in this encounter Care Teams Dry Chain Operator Relationship Specialty Start Date End Date Miranda Dent MD NEED INFORMATION UPDATED PCP - General 05/29/09 documented as of this encounter
[2024-09-21 18:26] VITALS: BP 127/71; PULSE 87; RESP 18; TEMP 36.4; O2SAT 99
--- NOTE | 2024-09-21 18:28 | ED.HA ---
HPI - Headache General Chief Complaint: Headache <Marlee Palma PA-C - Last Filed: 09/23/24 11:06> Stated Complaint: Migraine since 629 <Marlee Palma PA-C - Last Filed: 09/23/24 11:06> Time Seen by Provider: 09/21/24 18:28 <Marlee Palma PA-C - Last Filed: 09/23/24 11:06> Focused HPI: This is a 49 year old female that presents to the ER for a headache. Ongoing since earlier this morning. Reports she woke up for work and had a headache. Tried drinking some caffeine with little relief. Reports she then took Ibuprofen. She then started to develop nausea and vomiting. she tried taking Zofran and Zomig and still did not have any relief which prompted her to be seen. Reports she does get migraines, but not very frequently. GENERAL: Well-appearing, well-nourished, and in no acute distress. HEAD: Normocephalic, atraumatic. CHEST: Clear to auscultation. ?No respiratory distress. HEART: Regular rate and rhythm.? NEURO: ?Alert and oriented x3. Patient screened in triage and initial orders placed.? ?Additional care and disposition to be based upon?diagnostic testing and treatment. <Marlee Palma PA-C - Last Filed: 09/23/24 11:06> History of Present Illness HPI Narrative: agree with MSE <Marizol Gonzalez MD - Last Filed: 09/21/24 23:54> Related Data Allergies/Adverse Reactions: Allergies Allergy/AdvReac Type Severity Reaction Status Date / Time diclofenac Allergy Unknown Rash Unverified 09/21/24 21:23 doxycycline Allergy Unknown Rash Unverified 09/21/24 21:23 fentanyl Allergy Unknown Difficulty Unverified 09/21/24 21:23 Breathing meperidine Allergy Unknown Rash Unverified 09/21/24 21:23 Sulfa (Sulfonamide Allergy Unknown Rash Unverified 09/21/24 21:23 Antibiotics) <Marlee Palma PA-C - Last Filed: 09/23/24 11:06> Review of Systems Review of Systems: All systems reviewed & are unremarkable except as noted in HPI and below <Marizol Gonzalez MD - Last Filed: 09/21/24 23:54> [facility] Past Medical History Medical History: Medical History Migraine POTS (postural orthostatic tachycardia syndrome) <Marlee Palma PA-C - Last Filed: 09/23/24 11:06> Exam Narrative: EXAMINATION OF ORGAN SYSTEMS/BODY AREAS: Constitutional: Vital signs per nursing GENERAL: Appears uncomfortable, sunglasses on HEAD: Normal with no signs of head trauma. ENT: Hearing grossly intact LUNGS: Nonlabored breathing. HEART: [Regular rate and rhythm] ABD: [Soft], [nontender to palpation] EXT: Normal range of motion SKIN: [No rashes or lesions.] NEURO: [Alert and oriented x 3. No gross focal sensory or strength deficits. Clear speech. Symmetric face. Normal gait] PSYCH: Normal affect <Marizol Gonzalez MD - Last Filed: 09/21/24 23:54> Course Vital Signs Vital signs: Vital Signs Temperature 97.6 F 09/21/24 18:26 Pulse Rate 87 09/21/24 18:26 Respiratory Rate 18 09/21/24 18:26 Blood Pressure 127/71 09/21/24 18:26 Pulse Oximetry 99 09/21/24 18:26 Oxygen Delivery Room Air 09/21/24 18:26 Temperature 97.6 F 09/21/24 18:26 Pulse Rate 66 09/21/24 22:31 Respiratory Rate 15 09/21/24 22:31 Blood Pressure 115/78 09/21/24 22:31 Pulse Oximetry 97 09/21/24 22:31 Oxygen Delivery Room Air 09/21/24 18:26 <Marlee Palma PA-C - Last Filed: 09/23/24 11:06> Vital Signs Temperature 97.6 F 09/21/24 18:26 Pulse Rate 87 09/21/24 18:26 Respiratory Rate 18 09/21/24 18:26 Blood Pressure 127/71 09/21/24 18:26 Pulse Oximetry 99 09/21/24 18:26 Oxygen Delivery Room Air 09/21/24 18:26 Temperature 97.6 F 09/21/24 18:26 Pulse Rate 66 09/21/24 22:31 Respiratory Rate 15 09/21/24 22:31 Blood Pressure 115/78 09/21/24 22:31 Pulse Oximetry 97 09/21/24 22:31 Oxygen Delivery Room Air 09/21/24 18:26 <Marizol Gonzalez MD - Last Filed: 09/21/24 23:54> MDM - Headache MDM Narrative Medical decision making narrative: 49F presents to the emergency department for headache. Patient is hemodynamically stable. No focal neurological or cranial nerve deficits on exam. No meningeal signs. The headache was gradual in onset, it is not exertional and does not appear consistent with subarachnoid hemorrhage or intracranial bleeding. No trauma. Patient is given headache cocktail including Reglan, Benadryl, IVF. On re-eval she still has a bad headache so I did give compazine/toradol/benadryl, and dexamethasone to help prevent future migraine. On reevaluation, the patient feels significantly better with the headache resolved. No neurological deficits. She is smiling and her sunglasses have come off. Patient is comfortable going home for outpatient follow-up with primary care physician and/or neurology and provided with strict return precautions, especially for worsening headaches, neck pain/stiffness, fever or weakness, numbness/tingling or persistent vomiting <Marizol Gonzalez MD - Last Filed: 09/21/24 23:54> Critical Care Time Critical Care Time Critical Care Time: No <Marlee Palma PA-C - Last Filed: 09/23/24 11:06> Discharge Plan Discharge Clinical Impression: Migraine Qualifiers: Migraine type: unspecified Status migrainosus presence: without status migrainosus Intractability: not intractable Qualified Code(s): G43.909 - Migraine, unspecified, not intractable, without status migrainosus <Marlee Palma PA-C - Last Filed: 09/23/24 11:06> Patient Disposition: Home <Marlee Palma PA-C - Last Filed: 09/23/24 11:06> Condition: Stable <Marlee Palma PA-C - Last Filed: 09/23/24 11:06> Instructions: Migraine Headache (ED) <Marlee Palma PA-C - Last Filed: 09/23/24 11:06> Additional Instructions: Please follow up with your doctor; you can always return for any further issues. <Marlee Palma PA-C - Last Filed: 09/23/24 11:06> Patient Language: Nigerien <Marlee Palma PA-C - Last Filed: 09/23/24 11:06> Prescriptions: No Action zolmitriptan [Zomig] 2.5 mg tablet See Rx Instructions .ROUTE .COMPLEX Qty: 7 0RF Rx Instructions: take 1 tab at onset of headache; if no relief may repeat 1 tab after at least 2 hrs; max = 4 tabs/24 hr <Marlee Palma PA-C - Last Filed: 09/23/24 11:06> Follow-up/Referrals: Harms,Marlon Taylor M.D. [Primary Care Provider] - 2 Days <Marlee Palma PA-C - Last Filed: 09/23/24 11:06>
[2024-09-21] MEDS: SODIUM CHLORIDE 0.9% IV 1,000 ML 999 ML IV CONT (19:48)
[2024-09-21] MEDS: METOCLOPRAMIDE HCL INJ 10 MG/2 ML VIAL IV PUSH (19:49)
[2024-09-21] MEDS: diphenhydrAMINE HCl INJ 50 MG/ML VIAL 25 MG IV PUSH ×2 (19:49→21:19)
[2024-09-21] MEDS: ACETAMINOPHEN 500 MG TABLET 1000 MG PO (19:49)
--- OUTSIDE RECORDS SUMMARY | 2024-09-21 20:12 | XMS_ITS | Clinical Summary ---
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 Last Filed Vital Signs Vital Sign Reading Time Taken Comments Blood Pressure 118/64 06/22/2015 11:15 AM SENIOR PRODUCER Pulse 68 06/22/2015 11:15 AM SENIOR PRODUCER Temperature - - Respiratory Rate - - Oxygen Saturation - - Inhaled Oxygen Concentration - - Weight 56.7 kg (125 lb) 06/22/2015 11:15 AM SENIOR PRODUCER Height 154.9 cm (5' 1 ) 06/22/2015 11:15 AM SENIOR PRODUCER Body Mass Index 23.62 06/22/2015 11:15 AM SENIOR PRODUCER Plan of Treatment Health Maintenance Due Date [...] age to complete this topic Care Teams Refrigerating Engineer Head Relationship Specialty Start Date End Date Marlon Pollock MD [address] [place] [address] PCP - General Internal Medicine 06/22/15
--- OUTSIDE RECORDS SUMMARY | 2024-09-21 20:12 | XMS_ITS | Encounter Summary ---
Author Organization [facility] Address [address] [place] [address] Care Team Providers Care Orchestra Leader Name Role Phone Miranda Dent MD Primary Care Provider Cruz carvajal Encounter Details Date Type Department Care Team (Late st Contact Info) Description 11/18/[address] [facility] - DermPath Lab [address] [place] [address] Ronny Long Jr., MD [address] [place] [address] Social History Tobacco Use Types Packs/Day Years Used Date Smoking Tobacco: Never Assessed Comments Unknown Sex and Gender Information Value Date Recorded Sex Assigned at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 Legal Sex Female 6:07 AM STATISTICAL CLERK ADVERTISING Gender Identity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 Sexual Orientation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 documented as of this encounter Plan of Treatment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 documented as of this encounter Procedures Procedure Name Priority Date/Time Associated Diagnosis Comments DERMATOPATHOLOGY Routine 11/17/2023 12:0 0 AM CDT documented in this encounter Results * DERMATOPATHOLOGY (11/17/2023 12:00 AM CDT) Case Report Dermatopathology Report Case: [id number] Authorizing Provider: Ronny Long Jr., MD Collected: 11/17/2023 12:00 AM Ordering Location: [facility] - Received: 11/18/2023 12:31 PM DermPath Lab [...] characteristic determined by the Dermatopathology Laboratory at [facility], directed by Dr. Darshan Reagan. These tests need not be, and therefore are not, approved by the [place] Food and Drug Administration. The tests are used for clinical purposes. Billing Codes Specimen Charges Stain Charges 98185 1 1:16 PM CDT DERMATOPATHOLOGY LABORATORY Embedded Images 1:16 PM CDT DERMATOPATHOLOGY LABORATORY Pathology/Cytolog y TISSUE SPECIMEN FROM SKIN / Unknown 11/17/2023 11/18/2023 12:31 PM CDT Ronny Long Jr., MD LAB - PATHOLOGY/CYTOLOG Y ORDERABLES Final Result DERMATOPATHOLOGY LABORATORY [facility] - Department of Dermatology [address], [address] [phone] documented in this encounter Visit Diagnoses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documented in this encounter Care Teams Orchestra Leader Relationship Specialty Start Date End Date Miranda Dent MD NEED INFORMATION UPDATED PCP - General 05/29/09 documented as of this encounter
--- OUTSIDE RECORDS SUMMARY | 2024-09-21 20:12 | XMS_ITS | Encounter Summary ---
Author Organization [facility] Address 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 documented as of this encounter Plan of Treatment Upcoming Encounters Date Type Department Care Team (Late st Contact Info) Description 01/03/2025 8:00 PM CDT Appointment [facility] Support Services Adult Sleep Medicine [address] [facility] [address] [place] [address] Roxi Avendaño MD [address] [place] [address] 02/02/2025 3:30 PM CDT Office Visit [facility] At [facility] [address] [place] [address] Olivia Duran MD [address] [place], [place] [id number] 03/08/2025 3:15 PM CDT Office Visit [facility] SEXOLOGIST - [address] [place] [address] Kathy Robledo DO [address] [place] [address] documented as of this encounter Visit Diagnoses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documented in this encounter Care Teams Technical Photographer Relationship Specialty Start Date End Date Marlon Pollock MD PCP - General 06/06/09 documented as of this encounter
--- OUTSIDE RECORDS SUMMARY | 2024-09-21 20:12 | XMS_ITS | Clinical Summary ---
Author Organization [facility] Address [address] [place] [address] Care Team Providers Care Director Of Physician Practices Name Role Phone Marlon Pollock MD Primary Care Provider [phone] Allergies Active Allergy Reactions Criticality Noted Date Comments Covid-19 Vaccine, Mrna, [id number], Lnp-S (17u.cn) Angioedema High 06/25/2021 Diclofenac Rash,Fever Low 10/25/2009 [...] different from the original. Dr. Olivia Duran, flight information expediter Problem Noted Date Diagnosed Date Febrile illness [...] Data STL ABSTRACTION Provider, Abstract 09/12/2024 Telephone [facility] Pulmonology [address] [place] [address] Roxi Avendaño MD Follow Up 09/09/2024 Results Follow-Up [facility] Pulmonology [address] [place] [address] Roxi Avendaño MD HOME SLEEP STUDY UNATTENDED 08/19/2024 2:53 PM CDT - 08/19/2024 11:59 PM CDT Hospital Encounter [facility] Home Sleep Study [facility] [address] [facility] [address] [place] [address] Roxi Avendaño MD Discharge Disposition: Home or Self Care 08/10/2024 Abstract [facility] Heart and Vascular At [address] [place] [address] Olivia Duran MD 08/08/[address] [facility] Gastroenterology [address] [facility] [place] [address] Maxim Beard MD 08/05/2024 9:15 AM CDT Office Visit [facility] Pulmonology [facility] [address] [place] [address] Roxi Avendaño MD Observed sleep apnea (Primary Dx) 08/01/2024 Refill [facility] Heart and Vascular At [address] [place] [address] Olivia Duran MD 07/28/2024 3:15 PM CDT Office Visit [facility] Heart and Vascular At [address] [place] [address] Olivia Duran MD POTS (postural orthostatic tachycardia syndrome) (Primary Dx); Pure hypercholesterolemia 07/27/2024 External Device Data STL ABSTRACTION Provider, Abstract 07/26/2024 External Device Data STL ABSTRACTION Provider, Abstract 07/23/2024 External Device Data STL ABSTRACTION Provider, Abstract 07/22/2024 External Device Data STL ABSTRACTION Provider, Abstract 07/01/2024 Telephone [facility] Heart and Vascular At [address] [place] [address] Olivia Duran MD Information; Irregular Heart Beat from Last 3 Months Immunizations Immunization Administration Dates Next Due (PFIZER)(12 YR UP) COVID-19 VACCINE - EMERGENCY USE AUTHORIZATION, MRNA, [id number](PF) 30 MCG/0.3 ML IM SUSP 05/31/2021 Influenza [...] and Family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 02/25/2021 Attends [employer]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 02/25 Active Member [...] on file Legal Sex Female 5:50 AM NURSE COMPANION Gender Identity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 Sexual Orientation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 Support Services Adult Sleep Medicine [address] [place] [address] Roxi Avendaño MD [address] [place] [address] 02/02/2025 3:30 PM CDT Office Visit [facility] Heart [facility] Vascular At [facility] [address] [facility] [place] [address] Olivia Duran MD [address] [facility] [place], [place] [id number] 03/08/2025 3:15 PM CDT Office Visit [facility] VERIFYING SPECIALIST - [address] [facility] [address] [address] Kathy Robledo DO [address] [place] [address] Health Maintenance Due Date Last [...] OR WO CAD Routine 03/30/2024 4:40 PM NURSE COMPANION Visit for screening mammogram CERV/VAG CYTO AGE [...] Ball MD - 09/08/2024 7:12 AM CDT [place], [place] [address] Sleep Study CSN: [id number] DATE OF SERVICE: 08/21/2024 HISTORY The patient [...] LOC is a surrogate for AHI. KPL:MEDQ DID:[id number] Dictated by: Claudia Ball MD CC: Dr. Avendaño Roxi Avendaño MD SLEEP CENTER ORDERABLES Final Result * MAMMO 3D MADELINE SCREEN BILAT W OR WO CAD (03/30/2024 4:40 PM NURSE COMPANION) Anatomical Region Laterality Modality Breast Bilateral Mammography 03/30/2024 4:41 PM NURSE COMPANION Impressions 03/30/2024 4:51 PM NURSE COMPANION IMPRESSION: No mammographic evidence of malignancy in the bilateral breasts. Routine screening mammography is recommended in one year. OVERALL FINAL ASSESSMENT: BI-RADS CATEGORY 1 - Negative DICTATION LOCATION: [facility] 03/30/2024 4:51 PM NURSE COMPANION EXAMINATION: BILATERAL SCREENING DIGITAL MAMMOGRAPHY WITH TOMOSYNTHESIS [...] BI-RADS CATEGORY 1 - Negative DICTATION LOCATION: [facility] Kathy Moses Kieshaapolinar DO MAMMO ORDERABLES Final Result * (ABNORMAL) CERV/VAG CYTO AGE BASED SCREEN PAP (03/07/2024 3:27 PM CDT) COMMENT (PAP): [facility] [place] Comment: This order for age-based cervical cancer and STI screening follows ACOG guidelines(PB 168, 140, HCN260). See individual assays for performing site location. CLINICAL INFORMATION [facility] [place] Comment:SCREENING LAST MENSTRUAL PERIOD [facility] [place] Comment:NONE GIVEN PREV PAP: [facility] [place] Comment:03/05/2023 NIL PREV BX: [facility] [place] Comment:NONE GIVEN SOURCE [facility] [place] Comment:Endocervix ADEQUACY: [facility] [place] Comment: Satisfactory for evaluation. Endocervical/transformation zone component present. Age and/or menstrual status not provided GENERAL CATEGORIZATION: (A) [facility] [place] Comment:Cytology Results: Ep ithelial Cell Abnormality PAP INTERP (A) [facility] [place] Comment:Low Grade Squamous I ntraepithelial Lesion (LSIL) COMMENT (PAP TEST) [facility] [place] Comment: This Pap test has been evaluated with computer assisted technology. Suggest clinical correlation and follow-up as clinically appropriate REED MAKER: [facility] [place] Comment: MVB, CT(ASCP) CT Screening Location: [place] [address] [place] [address] PATHOLOGIST Sandy [facility] Sarah Comment: Irvin Gordon M.D., Board Certified in Anatomic Pathology and Cytopathology. (electronic signature) EXPLANATORY NOTE [facility] Comment: EXPLANATORY NOTE: The Pap [...] information. HPV E6/E7 Not Detected Not Detected [facility] [place] Comment: Methodology: Key Maker-Mediated Amplification This assay detects E6/E7 viral messenger RNA (mRNA) from 14 high-risk HPV types (16,18,31,33,35,39,45,51,52,56,58,59,66,68). Cervical sources are required for HPV testing. If a vaginal source from a patient who has had a total hysterectomy with removal of cervix was submitted, please contact the testing laboratory for alternative testing options. For additional information, please refer to http://education.iWeebo/faq/XXH493j6 (This link if provided for information/ educational purposes only.) Test Performed at: [facility] [address] [place] [address] Sergio RIVAS Genital SWAB OF ENDOCERVIX / Unknown 03/07/2024 3:27 PM CDT 03/08/2024 4:39 AM CDT Kathy Robledo DO PATHOLOGY/CYTOLOGY ORDERABLES F inal Result [facility] [phone] [facility] [address] [place] [address] * COLONOSCOPY REPORT (10/17/2021 12:25 PM CDT) Narrative Procedure Note Maxim Beard MD - 10/17/2021 12:[address] [facility] Endoscopy Patient Name: Annel Grnada Procedure Date: 10/17/2021 Date of : 1975 [...] Addenda: 0 Procedure Date: 10/17/2021 11:44:[address] [place] [address] Maxim Beard MD GI PROCEDURE ORDERABLES Final Result from Last 3 Months or Most Recently Relevant to Health Maintenance Insurance [facility] [employer] [address] Advance Directives For more information, please contact: [phone] * Full Code (Latest Code Status on [...] 7:16 AM 06/17/2017 11:10 AM Care Teams Director Of Physician Practices Relationship Specialty Start Date End Date Marlon Pollock MD PCP - General 06/06/09
--- OUTSIDE RECORDS SUMMARY | 2024-09-21 20:12 | XMS_ITS | Referral Summary ---
Author Organization [facility] Address [address] [place] [address] Care Team Providers Care Manager Visual Name Role Phone Marlon Pollock MD Primary Care Provider [phone] Encounters Date Type Department Care Team Description 09/08/2024 Orders Only [facility] [address] [address] Marlon Pollock MD 08/09/2024 8:30 AM CDT - 08/09/2024 11:59 PM CD[place] [address] POTS (postural orthostatic tachycardia syndrome) Discharge Disposition: Discharge to home or self care 08/09/2024 8:30 AM CDT Lab [facility] Medical [facility] Outpatient Lab at [address] [address] POTS (postural orthostatic tachycardia syndrome) (Primary Dx) 08/09/2024 8:00 AM CDT Office Visit [facility] Primary Care at [address] [address] Marlon Pollock MD POTS (postural orthostatic tachycardia syndrome) (Primary Dx); Mixed hyperlipidemia; Gastroesophageal reflux disease, unspecified whether esophagitis present; Sleep disturbance; Annual physical exam; BMI 26.0-26.9,adult 08/02/2024 5:30 PM CDT Office Visit [facility] Medical [facility] Convenient Care at [address] [address] Flores, Ranita, CATHETERIZATION LABORATORY TECHNICIAN Eyelid dermatitis, allergic/contact (Primary Dx) 07/01/2024 Telephone [facility] [place] [address] [place] [address] Marlon Pollock MD 06/28/2024 Telephone [facility] Healthcare [facility] [address] [facility] Room [address]20 (Third Floor) [place] [address] Diandra Matson RN [place] Employee Screening 06/28/2024 10:30 AM HOTEL ENGINEER Office Visit [facility] Medical Group Primary Care at [address] [address] Marlon Pollock MD Acute cough (Primary Dx); Fever, unspecified fever cause; Influenza A from Last 3 Months Allergies Active Allergy Reactions Criticality Noted Date Comments Covid-19 Vaccine, Mrna, [id number], Lnp-S ([employer]) Angioedema High 06/25/2021 Diclofenac Dicyclomine Rash Medium [...] month. Assessment & Plan (04/28/2024 8:52 AM HOTEL ENGINEER): Referral to sleep medicine at [facility] for strongly suspicious findings of SHAR and will refer as above. No parasomnia, no sleep talking. BMI 26.0-26.9,adult 04/28/2024 Assessment & Plan (08/09/2024 8:18 AM CDT): NOt an active clincial issues. Assessment & Plan (04/28/2024 8:52 AM HOTEL ENGINEER): Not an active clinical issue. Post-COVID chronic [...] hydration. Assessment & Plan (04/28/2024 8:51 AM HOTEL ENGINEER): COntinue f/u with cardiology. Remains aggressive with [...] drink = 0.6 oz pur e alcohol) [facility] [employer] Answer Date Recorded In the past 12 months has e [employer], oil, or water [employer] threatened to shut off services in your [...] How often do you attend chur or islam services? More than 4 times per year 04/18/2024 Do you belong to any clubs o r organizations such as amish groups, unions, fraternal or athletic groups, or [...] staff should administer the PHQ-9) 0 08/09/2024 [facility] - Occupational Stress Questionnaire Answer Date [...] any time in the past 12 m [facility], were you homeless or living in a fpc (including now)? No 04/18/2024 Comments Unknown Sex and Gender Information Value Date Recorded Sex Assigned at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 Legal Sex Female 7:01 PM HOTEL ENGINEER Gender Identity Female 12/07/2020 8:51 AM CDT [...] A/B, COVID-19 ANTIGEN Routine 06/28/2024 10:42 AM HOTEL ENGINEER Acute cough SCREENING MAMMOGRAM BILATERAL W SILAS [...] CDT FAX RESULTS TO DR OLIVIA HERNANDEZ [phone] Olivia Hernandez MD LAB BLOOD ORDERABLES Final Res ult TIANNA [address] [address] Department [place] [address] * (ABNORMAL) POC Influenza A/B, COVID-19 antigen (06/28/2024 10:42 AM HOTEL ENGINEER) Influenza A Ag, POC Positive(A) Negative [facility] Influenza B Ag, POC Negative Negative [facility] COVID-19 Ag POC Presumptive Negative Presumptive Negative, Invalid [facility] Nasal 06/28/2024 10:4 2 AM HOTEL ENGINEER Marlon Pollock MD POINT OF CARE TEST ORDERA BLES Final Result [facility] [address] - [facility] [address] [place] [address], [facility] * Screening Mammogram Bilateral W Silas (02/06/2022) Anatomical Region Laterality Modality Breast Bilateral Mammography Historical Provider IMG MAMMO PROCEDURES Sammi l Result * Colonoscopy (10/17/2021) Anatomical Region Laterality Modality Other Historical Provider ENDOSCOPY PROCEDURES Sammi l Result from Last 3 Months or Most Recently Relevant to Health Maintenance Insurance [facility] CHOICE PLUS [facility] HMO/PPO Address: [address] [place] [address] [place] [address] [facility] CHOICE PLUS [facility] HMO/PPO Address: [address] [place] [address] [place] [address] [facility] CHOICE PLUS [facility] HMO/PPO Address: [place] [id number] [place] [address] [facility] CHOICE PLUS [facility] HMO/PPO Address: [place] [address] Care Teams Manager Visual Relationship Specialty Start Date End Date [place] [address] PCP - General 01/03/11
--- OUTSIDE RECORDS SUMMARY | 2024-09-21 20:12 | XMS_ITS | Clinical Summary ---
Author Organization [facility] Address [address] [place] [address] Care Team Providers Care Manager Fiber Name Role Phone Miranda Dent MD Primary Care Provider Cruz carvajal Source Comments [facility],non-owned Affiliates and Associated Physician Practices is amultiple site organization consisting of ambulatory clinics and hospital sitesin [place], [place], [place] and [place]. This disclosure is being madepursuant to the Care Everywhere program and may not contain all information available regarding this patient. Last updated 18.[facility] [employer] Social History Tobacco Use Types Packs/Day Years Used Date Smoking Tobacco: Never Assessed Comments Unknown Sex and Gender Information Value Date Recorded Sex Assigned at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 Legal Sex Female 6:07 AM SUPPLY CHAIN ASSISTANT Gender Identity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 Sexual Orientation [...] patient's age to complete this topic Insurance [facility] Care Teams Manager Fiber Relationship Specialty Start Date End Date Miranda Dent MD NEED INFORMATION UPDATED PCP - General 05/29/09
--- OUTSIDE RECORDS SUMMARY | 2024-09-21 20:12 | XMS_ITS | Clinical Summary ---
Author Organization [facility] Address [address] [place] [address] Care Team Providers Care Director Medical Affairs Name Role Phone Marlon Pollock MD Primary Care Provider [phone] Allergies Active Allergy Reactions Criticality Noted Date Comments Covid-19 Vaccine, Mrna, [id number], Lnp-S (Pfizer) Angioedema High 06/25/2021 Diclofenac Dicyclomine [...] month. Assessment & Plan (04/28/2024 8:52 AM MEDICAL CLAIMS ASSISTANT): Referral to sleep medicine at [facility] for strongly suspicious findings of SHAR and will refer as above. No parasomnia, no sleep talking. BMI 26.0-26.9,adult 04/28/2024 Assessment & Plan (08/09/2024 8:18 AM CDT): NOt an active clincial issues. Assessment & Plan (04/28/2024 8:52 AM MEDICAL CLAIMS ASSISTANT): Not an active clinical issue. Post-COVID chronic [...] hydration. Assessment & Plan (04/28/2024 8:51 AM MEDICAL CLAIMS ASSISTANT): COntinue f/u with cardiology. Remains aggressive with [...] Description 09/08/2024 Orders Only [facility] [address] [phone] Marlon Pollock MD 08/09/2024 8:30 AM CDT - 08/09/2024 11:59 PM CDT Hospital Encounter [place] [id number] POTS (postural orthostatic tachycardia syndrome) Discharge Disposition: Discharge to home or self care 08/09/2024 8:30 AM CDT Lab [facility] Medical Group Outpatient Lab at [address] [phone] POTS (postural orthostatic tachycardia syndrome) (Primary Dx) 08/09/2024 8:00 AM CDT Office Visit [facility] Medical Group Primary Care at [address] [phone] Marlon Pollock MD POTS (postural orthostatic tachycardia syndrome) (Primary Dx); Mixed hyperlipidemia; Gastroesophageal reflux disease, unspecified whether esophagitis present; Sleep disturbance; Annual physical exam; BMI 26.0-26.9,adult 08/02/2024 5:30 PM CDT Office Visit [facility] Medical Group Convenient Care at [address] [phone] Bruno Flores NP Eyelid dermatitis, allergic/contact (Primary Dx) 07/01/2024 Telephone [facility] [address] [phone] Marlon Pollock MD 06/28/2024 10:30 AM MEDICAL CLAIMS ASSISTANT Office Visit [facility] Medical Group Primary Care at [address] [address] Marlon Pollock MD Acute cough (Primary Dx); Fever, unspecified fever cause; Influenza A 06/28/2024 Telephone [facility] [address] Room [address] (Third Floor) [place] [id number] Diandra Matson, RN [place] Employee Screening from [...] drink = 0.6 oz pur e alcohol) [facility] [employer] Answer Date Recorded In the past 12 months has [employer] gas, oil, or water [employer] threatened to shut off services in your [...] week 04/18/2024 How often do you attend [facility] or holiness services? More than 4 times per year 04/18/2024 Do you belong to any clubs o r organizations such as denominational groups, unions, fraternal or athletic groups, or [...] staff should administer the PHQ-9) 0 08/09/2024 [facility] Occupat ional Health - [...] any time in the past 12 m [facility], were you homeless or living in a half-way (including now)? No 04/18/2024 Comments Unknown Sex and Gender Information Value Date Recorded Sex Assigned at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 Legal Sex Female 7:01 PM MEDICAL CLAIMS ASSISTANT Gender Identity Female 12/07/2020 8:51 AM CDT [...] A/B, COVID-19 ANTIGEN Routine 06/28/2024 10:42 AM MEDICAL CLAIMS ASSISTANT Acute cough SCREENING MAMMOGRAM BILATERAL W SILAS [...] CDT FAX RESULTS TO DR OLIVIA HERNANDEZ [phone] Olivia Hernandez MD LAB BLOOD ORDERABLES Final Res ult [place] [address] [address] Department [place] [address] * (ABNORMAL) POC Influenza A/B, COVID-19 antigen (06/28/2024 10:42 AM MEDICAL CLAIMS ASSISTANT) Influenza A Ag, POC Positive(A) Negative [facility] Influenza B Ag, POC Negative Negative [facility] COVID-19 Ag POC Presumptive Negative Presumptive Negative, Invalid [facility] Nasal 06/28/2024 10:4 2 AM MEDICAL CLAIMS ASSISTANT Marlon Pollock MD POINT OF CARE TEST ORDERA BLES Final Result Performing Organization Address City/[facility]/ZIP Co de Phone Number [facility] PCP FM EDW [address] [facility] [address] * Screening Mammogram Bilateral W Silas (02/06/2022) Anatomical Region Laterality Modality Breast Bilateral Mammography Historical Provider IMG MAMMO PROCEDURES Sammi l Result * Colonoscopy (10/17/2021) Anatomical Region Laterality Modality Other Historical Provider ENDOSCOPY PROCEDURES Sammi l Result from Last 3 Months or Most Recently Relevant to Health Maintenance Insurance [facility] [employer] [place] [employer] [place] [id number] [employer] [place] [employer] [address] [employer] [address] [employer] PL[employer] Care Teams Director Medical Affairs Relationship Specialty Start Date End Date Marlon Pollock MD [address] [place] [address] PCP - General 01/03/11
--- OUTSIDE RECORDS SUMMARY | 2024-09-21 20:12 | XMS_ITS | Encounter Summary ---
Author Organization [facility] Address [address] [place] [address] Care Team Providers Care Freight Sorter Name Role Phone Marlon Pollock MD Primary Care Provider [phone] Encounter Details Date Type Department Care Team (Latest Contact Info) Description 09/09/2024 Results Follow-Up [facility] Pulmonology [facility] [address] [place] [address] Roxi Avendaño MD [address] [place] [address] HOME SLEEP STUDY UNATTENDED Social [...] and Family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 02/25/2021 Attends [employer]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 02/25 Active Member [...] on file 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 Gender Identity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 Sexual Orientation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[employer]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 documented as of this encounter Miscellaneous Notes * Result Encounter Note - Roxi Avendaño MD - 09/09/2024 12:55 PM CDT [facility] documented in this encounter Plan of Treatment Upcoming Encounters Date Type Department Care Team (Late st Contact Info) Description 01/03/2025 8:00 PM CDT Appointment [facility] Support Services Adult Sleep Medicine [address] [facility] [place] [address] Roxi Avendaño MD [address] [place] [address] 02/02/2025 3:30 PM CDT Office Visit [facility] Heart and Vascular At [facility] [address] [place] [address] Olivia Duran MD [address] [facility] [address] [place], [place] [phone] 03/08/2025 3:15 PM CDT Office Visit [facility] [id number] [place] [address] Kathy Robledo DO [address] [place] [address] documented as of this encounter Visit Diagnoses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documented in this encounter Care Teams Freight Sorter Relationship Specialty Start Date End Date Marlon Pollock MD PCP - General 06/06/09 documented as of this encounter
[2024-09-21] MEDS: PROCHLORPERAZINE EDISYLATE 10 MG/2 ML VIAL IV PUSH (21:19)
[2024-09-21] MEDS: KETOROLAC 15 MG/ML VIAL (*BKC) IV PUSH (21:19)
[2024-09-21] MEDS: dexAMETHasone 10 MG/10 ML INTENSOL CONC (*BKC) PO (21:20)
[2024-09-21 21:24] VITALS: BP 133/84; PULSE 62; RESP 14; O2SAT 97
[2024-09-21 22:31] VITALS: BP 115/78; PULSE 66; RESP 15; O2SAT 97
== END 2024-09-21 22:32 | disposition home or self-care (01) ==
PROVIDERS: Emergency Provider Emergency Medicine; PCP Family Medicine
DX: G43.909 Migraine, unspecified, not intractable, without status migrainosus (principal); G90.A Postural orthostatic tachycardia syndrome [POTS]
CPT/HCPCS: 96361; 96374; 96375; 96376; 99284; A9270; J0780; J1200; J1885; J2765; J7030; J8540